=== PATIENT | female | born 2000 | race Caucasian/White ===

== ENCOUNTER 2019-10-06 10:18 | Day surgery (SDC) | payer BC ==
[2019-10-05 10:40] LABS: ALBUMIN 3.7 g/dL (3.4-4.8); CREATININE 0.73 mg/dL (0.55-1.30); POTASSIUM 4.3 mmol/L (3.5-5.1); TOTAL BILIRUBIN 0.2 mg/dL (0.0-1.0)
[2019-10-05 10:43] LABS: BASOPHILS % (AUTO) 0.5 % (0.0-2.0); EOSINOPHILS # (AUTO) 0.1 K/uL (0.0-0.4); EOSINOPHILS % (AUTO) 2.6 % (0.0-4.0); HEMATOCRIT 41.1 % (36-48); HEMOGLOBIN 13.8 g/dL (12.0-16.0); LYMPHOCYTES # (AUTO) 2.6 K/uL (1.0-5.5); LYMPHOCYTES % (AUTO) 47.4 % (20.5-51.5); MEAN CORPUSCULAR HEMOGLOBIN 30 pg (27-31); MEAN CORPUSCULAR HGB CONC 34 % (32-36); MEAN CORPUSCULAR VOLUME 89 fL (79.0-98.0); MONOCYTES # (AUTO) 0.5 K/uL (0.0-1.0); MONOCYTES % (AUTO) 9.4 % (1.7-9.3); NEUTROPHILS # (AUTO) 2.2 K/uL (1.8-7.7); NEUTROPHILS % (AUTO) 40.1 % (40.0-70.0); PLATELET COUNT (AUTO) 232 K/uL (130-430); RED BLOOD CELL COUNT(AUTO) 4.62 MIL/uL (4.2-6.2); RED CELL DISTRIBUTION WIDTH 13.2 % (9.0-15.0); WHITE BLOOD COUNT (AUTO) 5.4 K/uL (4.5-11.0)
[2019-10-05 10:44] LABS: HCG,QUAL RESULT NEGATIVE (NEGATIVE)
[~2019-10-06] VITALS: Ht 180.3 cm; Wt 105.7 kg
[2019-10-06] MEDS ORDERED: ONDANSETRON HCL 4 MG/2 ML VIAL IVP PRN (13:00)
[2019-10-06] MEDS ORDERED: fentaNYL CITRATE/PF 100 MCG/2 ML AMP IVP PRN ×2 (13:00)
[2019-10-06] MEDS ORDERED: HYDROcodone/ACETAMIN 5-325 MG TAB (NORCO/ VICODIN) PO PRN (13:45)
[2019-10-06 14:25] VITALS: BP_SYST 122
== END 2019-10-06 14:33 | disposition home or self-care (01) ==
LOC: SDS 10:18 → SMU 10:18 → SDS 14:33
PROVIDERS: ATTEND Surgery
DX: R22.2 Localized swelling, mass and lump, trunk (principal)
CPT/HCPCS: 21931; 36415; 80053; 84703; 85025; 88304; J7120

== ENCOUNTER 2020-06-20 18:04 | Emergency (ER) | payer BC ==
[~2020-06-20] VITALS: Ht 182.9 cm; Wt 112.5 kg
[2020-06-20 18:11] VITALS: BP_SYST 163
[2020-06-20 22:44] VITALS: BP_SYST 163
== END 2020-06-20 22:44 | disposition home or self-care (01) ==
LOC: SED 18:04
DX: R51 Headache (principal)
CPT/HCPCS: 70450-TC; 81025; 99284